=== PATIENT | female | born 2000 | race Caucasian/White ===

== ENCOUNTER 2024-02-29 17:33 | Emergency (ER) | payer OTHER ==
[2024-02-29 18:09] LABS: BASOPHILS ABSOLUTE AUTO 0.1 K/mm3 (0.0-0.2); BASOPHILS PERCENT AUTO 0.8 % (0.0-1.0); EOSINOPHILS ABSOLUTE AUTO 0.1 K/mm3 (0.0-0.4); EOSINOPHILS PERCENT AUTO 1.1 % (0.0-6.0); HEMATOCRIT 40.5 % (37.0-47.0); HEMOGLOBIN 13.8 gm/dl (12.0-16.0); IMMATURE GRAN ABSOLUTE AUTO 0.04 K/mm3 (0.00-0.05); IMMATURE GRAN PERCENT AUTO 0.4 % (0.0-0.4); LYMPHOCYTES ABSOLUTE AUTO 2.3 K/mm3 (1.0-4.8); LYMPHOCYTES PERCENT AUTO 25.1 % (24.0-44.0); MEAN CORPUSCULAR HEMOGLOBIN 29.8 pg (28.0-32.0); MEAN CORPUSCULAR HGB CONC 34.1 g/dl (32.0-36.0); MEAN CORPUSCULAR VOLUME 87.5 fl (83.0-99.0); MEAN PLATELET VOLUME 10.9 fl (9.4-12.3); MONOCYTES ABSOLUTE AUTO 0.6 K/mm3 (0.0-0.8); MONOCYTES PERCENT AUTO 6.8 % (0.0-8.0); NEUTROPHILS ABSOLUTE AUTO 5.9 K/mm3 (1.8-7.7); NEUTROPHILS PERCENT AUTO 65.8 % (41.0-71.0); PLATELET COUNT,PLT 337 K/mm3 (150-400); RED BLOOD CELL COUNT 4.63 M/mm3 (4.10-5.30)
[2024-02-29] MEDS: Sodium Chloride 0.9% 10 ML Syringe FLUSH PRN (18:24)
[2024-02-29 18:56] LABS: A/G RATIO 0.9 (1-2); ALBUMIN 3.7 g/dl (3.4-5.0); ANION GAP 14.7 (5-15); BILIRUBIN TOTAL 0.7 mg/dL (0.2-1.0); BUN/CREATININE RATIO 6.7 (14-18); CALCIUM 9.5 mg/dL (8.5-10.1); CREATININE 0.9 mg/dL (0.55-1.02); EST CRCL DRUG DOSING (CG) 80.42 mL/min; POTASSIUM,K 3.7 mEq/L (3.5-5.1); PROTEIN TOTAL,TP 7.8 g/dl (6.4-8.2)
== END 2024-02-29 20:49 | disposition home or self-care (01) ==
LOC: JD.ED 17:33
DX: O20.8 Other hemorrhage in early pregnancy (principal); Z3A.08 8 weeks gestation of pregnancy
CPT/HCPCS: 36415; 76817; 80053; 84702; 85025; 86900; 86901; 99284; J3490; 99282

== ENCOUNTER 2024-09-20 13:02 | Emergency (ER) | payer OTHER ==
[2024-09-20] MEDS: Sodium Chloride 0.9% 500 ML IV SCH (15:01)
[2024-09-20] MEDS: Sodium Chloride 0.9% 10 ML Syringe FLUSH PRN (15:03)
[2024-09-20 15:25] LABS: APPEARANCE,URINE SLT CLOUDY (Clear); BILIRUBIN,URINE NEGATIVE (Negative); COLOR,URINE YELLOW (Yellow); GLUCOSE,URINE NEGATIVE (Negative); KETONES,URINE TRACE (Negative); LEUKOCYTE ESTERASE,URINE NEGATIVE (Negative); NITRITE,URINE NEGATIVE (Negative); OCCULT BLOOD,URINE NEGATIVE (Negative); PH,URINE 6.5 (5.0-8.0); PROTEIN,URINE 1+ (Negative); UROBILINOGEN,URINE 0.2 (0.2-1.0)
[2024-09-20 15:30] LABS: C-REACTIVE PROTEIN 0.26 mg/dL (<0.30); MAGNESIUM 1.8 mg/dL (1.8-2.4)
[2024-09-20 15:34] LABS: BACTERIA,URINE MODERATE /hpf (FEW); MUCUS,URINE MANY /hpf (FEW); RBC,URINE 0-5 /hpf (0-5); WBC,URINE 0-5 /hpf (0-5)
[2024-09-20 16:54] LABS: CREATININE,URINE RAND 223.2 mg/dL (30.0-125.0); PROTEIN CREATININE RATIO,URINE 128.6 mg/g (0-149); PROTEIN,URINE RANDOM 28.7 mg/dL (0.0-11.8)
== END 2024-09-20 16:00 | disposition home or self-care (01) ==
LOC: JD.ED 13:02
DX: O99.413 Diseases of the circulatory system complicating pregnancy, third trimester (principal); I49.3 Ventricular premature depolarization; Z79.899 Other long term (current) drug therapy; Z3A.37 37 weeks gestation of pregnancy
CPT/HCPCS: 36415; 81001; 82570; 83690; 83735; 84156; 84484; 86140; 87428; 93005; 96360; 99285; J7040

== ENCOUNTER 2024-10-07 06:36 | Inpatient (IN) | payer OTHER ==
[~2024-10-07 06:36] MED LIST: Bupivacaine 0.25% 10 ML SDV ONE; Ropivacaine 0.2% PF 2 MG/ML 20 ML SDV ONE
[2024-10-07] MEDS ORDERED: Nalbuphine 10 MG/1 ML Vial IVPUSH PRN (07:02)
[2024-10-07] MEDS ORDERED: Ondansetron 4 MG/2 ML SDV IVPUSH PRN (07:02)
[2024-10-07] MEDS ORDERED: Lidocaine 1% 50 ML MDV INJECT PRN (07:02)
[2024-10-07] MEDS ORDERED: Sodium Chloride 0.9% 10 ML Syringe FLUSH PRN (07:02)
[2024-10-07] MEDS ORDERED: Oxytocin/0.9 % Sodium Chloride 30 UNIT/500 ML BAG IV SCH (07:15)
[2024-10-07 07:36] LABS: BASOPHILS PERCENT AUTO 0.2 % (0.0-1.0); EOSINOPHILS ABSOLUTE AUTO 0.1 K/mm3 (0.0-0.4); EOSINOPHILS PERCENT AUTO 0.7 % (0.0-6.0); HEMATOCRIT 34.1 % (37.0-47.0); HEMOGLOBIN 10.7 gm/dl (12.0-16.0); IMMATURE GRAN ABSOLUTE AUTO 0.06 K/mm3 (0.00-0.05); IMMATURE GRAN PERCENT AUTO 0.7 % (0.0-0.4); LYMPHOCYTES ABSOLUTE AUTO 1.7 K/mm3 (1.0-4.8); LYMPHOCYTES PERCENT AUTO 20.8 % (24.0-44.0); MEAN CORPUSCULAR HGB CONC 31.4 g/dl (32.0-36.0); MEAN CORPUSCULAR VOLUME 82.8 fl (83.0-99.0); MONOCYTES ABSOLUTE AUTO 0.5 K/mm3 (0.0-0.8); MONOCYTES PERCENT AUTO 6.4 % (0.0-8.0); NEUTROPHILS ABSOLUTE AUTO 5.9 K/mm3 (1.8-7.7); NEUTROPHILS PERCENT AUTO 71.2 % (41.0-71.0); PLATELET COUNT,PLT 245 K/mm3 (150-400); RED BLOOD CELL COUNT 4.12 M/mm3 (4.10-5.30); WHITE BLOOD CELL COUNT,WBC 8.31 K/mm3 (3.9-11.3)
[2024-10-07] MEDS: Lactated Ringers 1,000 ML IV SCH (08:30)
[2024-10-07] MEDS: Oxytocin/0.9 % Sodium Chloride 30 UNIT/500 ML BAG IV SCH (08:36)
[2024-10-07] MEDS: Sodium Chloride 0.9% 10 ML Syringe FLUSH SCH (09:58)
[2024-10-07] MEDS ORDERED: diphenhydrAMINE 50 MG/ML SDV IVPUSH PRN (11:42)
[2024-10-07] MEDS ORDERED: ePHEDrine 50 MG/ML SDV IM PRN (11:42)
[2024-10-07] MEDS: Ropivacaine 200 MG in Premix Bag 1 BAG EPIDUR PRN (11:48)
[2024-10-07] MEDS: ePHEDrine 50 MG/ML SDV IVPUSH PRN (12:34)
[2024-10-07] MEDS ORDERED: Benzocaine/Menthol 20%-0.5% Spray 78 GM Cannister TOP PRN (18:28)
[2024-10-07] MEDS ORDERED: Docusate Sodium 100 MG Cap PO PRN (18:28)
[2024-10-07] MEDS ORDERED: Measles, Mumps & Rubella Vaccine 0.5 ML SDV SUBCUT ONE (18:28)
[2024-10-07] MEDS ORDERED: Witch Hazel Medicated Pads 40/Jar TOP PRN (18:28)
[2024-10-07] MEDS: Ibuprofen 800 MG Tab PO SCH (19:46)
[2024-10-07] MEDS: Acetaminophen 325 MG Tab PO PRN (20:45)
== END 2024-10-09 10:50 | disposition home or self-care (01) | DRG 806 ==
LOC: JD.OB 06:36 → OBSVTOIN 17:56 → JD.OB 17:57
PROVIDERS: ADMIT Obstetrics & Gynecology; ATTEND Obstetrics & Gynecology
PROC: 3E0234Z Introduction of Serum, Toxoid and Vaccine into Muscle, Percutaneous Approach (ICD-10-PCS; principal; 2024-10-07)
PROC: 3E0R3BZ Introduction of Anesthetic Agent into Spinal Canal, Percutaneous Approach (ICD-10-PCS; principal; 2024-10-07)
PROC: 3E033VJ Introduction of Other Hormone into Peripheral Vein, Percutaneous Approach (ICD-10-PCS; principal; 2024-10-07)
PROC: 10907ZC Drainage of Amniotic Fluid, Therapeutic from Products of Conception, Via Natural or Artificial Opening (ICD-10-PCS; principal; 2024-10-07)
PROC: 0KQM0ZZ Repair Perineum Muscle, Open Approach (ICD-10-PCS; principal; 2024-10-07)
PROC: 10E0XZZ Delivery of Products of Conception, External Approach (ICD-10-PCS; principal; 2024-10-07)
DX: O99.214 Obesity complicating childbirth (principal); N12 Tubulo-interstitial nephritis, not specified as acute or chronic; Z37.0 Single live birth; Z3A.39 39 weeks gestation of pregnancy; O99.344 Other mental disorders complicating childbirth; O70.1 Second degree perineal laceration during delivery; F41.8 Other specified anxiety disorders; E66.9 Obesity, unspecified; F32.A Depression, unspecified; A64 Unspecified sexually transmitted disease; Z72.0 Tobacco use; Z23 Encounter for immunization; Z79.899 Other long term (current) drug therapy
CPT/HCPCS: 01967; 36415; 51701; 59025; 59409; 85025; 86592; 86850; 86900; 86901; A9270-GY; C1758; J0665; J2795; J3490; J7120; J7999